=== PATIENT | male | born 1945 | race Caucasian/White ===

== ENCOUNTER → 2017-07-03 | Outpatient (CLI) | payer MEDICARE, OTHER ==
[~2017-07-03] MED LIST: AMLODIPINE5 MG PO; APRESOLINE50 MG PO; BYSTOLIC20 MG PO; CARDURA4 MG PO; CARVEDILOL25 MG PO; CATAPRES0.3 MG PO; CIPRO 500MG TA500 MG PO; CO Q-1010 M1 PO; CO Q-1050 MG PO; DIGITEK0.25 MG PO; DILTIAZEM240 M1 PO; FERROUS SU325 MG/TAB PO; FUROSEMIDE20 MG PO; GLUCOPHAGE1000 MG PO; GLUCOSAMINE CHO1 CAP PO; HYDROCHLOR50 MG PO; KLOR-CON 1010 MEQ PO; LANTUS100 U/ML; LASIX 40MG TABL40 MG PO; LISINOPRIL20 MG PO; M2 ZINC 5050 MG PO; MEN'S MULTIVITA1 TAB PO; MESTINON 6060 MG/TAB; METFORMIN1000 MG PO; NATURAL E400 IU PO; NOVOLOG 100U100 U/M1 SQ; OMEGA 31000 MG PO; POTASSIUM GLUCO80 MG PO; PRILOSEC 20MG20 MG PO; RITALIN 5MG5 MG/TAB; SIMVASTATIN20 MG PO; ST. JOSEPH81 M2 PO; TERAZOSIN5 MG PO; TIAZAC180 MG PO; VITAMIN C500 MG PO; VITAMIN D32000 IU PO; ZESTRIL 20MG TA20 MG PO
== END ==
LOC: COL.RAD 08:04
DX: R11.0 Nausea (principal)
CPT/HCPCS: A9541

== ENCOUNTER 2017-08-14 15:56 | Inpatient (IN) | payer MEDICARE, OTHER ==
[~2017-08-14] VITALS: Ht 180.3 cm; Wt 115.2 kg
[2017-08-17] VITALS (11 sets, daily range): BP systolic 99–121; BP diastolic 63–86; PULSE 91–107; TEMP 97.7–98.8
[2017-08-17] MEDS ORDERED: INSLANT SQ (11:27)
[2017-08-17] MEDS ORDERED: PRIL40 PO (11:29)
[2017-08-17] MEDS ORDERED: KEYTRUDA25 MG/ML IV (11:29)
[2017-08-17] MEDS ORDERED: REGLAN 10MG10 MG/TAB PO (11:30)
[2017-08-17] MEDS ORDERED: COLACE 100100 MG/CAP PO (11:31)
[2017-08-17] MEDS ORDERED: NOVOLIN R100 U/ML SQ (11:33)
[2017-08-17 11:40] LABS: ALBUMIN 3.5 gm/dL (3.5-5.0); CALCIUM 9.1 mg/dL (8.4-10.2); CREATININE, serum 0.81 mg/dL (0.66-1.25); POTASSIUM 4.3 mmol/L (3.4-5.0)
[2017-08-18 02:00] VITALS: BP 120/75; PULSE 110
[2017-08-18 05:49] VITALS: BP 135/76; PULSE 103; TEMP 98.9
[2017-08-18 07:29] LABS: BILIRUBIN,TOTAL 0.5 mg/dL (0.0-1.0); CALCIUM 8.1 mg/dL (8.4-10.2); CREATININE, serum 1.19 mg/dL (0.66-1.25); MAGNESIUM 1.7 mg/dL (1.6-2.3); PHOSPHOROUS 3.6 mg/dL (2.5-4.5); TOTAL PROTEIN 6.1 gm/dL (6.4-8.2)
[2017-08-18 09:23] VITALS: BP 131/75; PULSE 102; TEMP 97.5
[2017-08-18 09:54] LABS: HEMATOCRIT 38.2 % (42.0-52.0); HEMOGLOBIN 12.1 g/dl (13.5-18.0); MEAN CELL VOLUME 87 fl (80.0-100.0); MEAN CORPUSCULAR HEMOGLOBIN 28 pg (27.0-31.0); MEAN CORPUSCULAR HGB CONC 32 g/dl (33.0-37.0); MEAN PLATELET VOLUME 11.7 fl (7.4-10.4); PLATELET COUNT 235 K/mm3 (130-400); RED BLOOD COUNT 4.37 M/mm3 (4.20-5.60); REDCELL DISTRIBUTION WIDTH-CV 15.7 % (11.5-14.5)
[2017-08-18 10:12] LABS: BAND 13 % (0-10); LYMPHOCYTE 6 % (20.0-51.0); NEUTROPHILS 78 % (42.0-75.2); PLATELET ESTIMATE NORMAL (NORMAL)
[2017-08-18 14:04] VITALS: BP 131/76; PULSE 98; TEMP 98.2
[2017-08-18 16:24] VITALS: BP 143/84; PULSE 105; TEMP 98.4
[2017-08-18 23:02] VITALS: BP 127/70; PULSE 111; TEMP 98.4
[2017-08-19] VITALS (7 sets, daily range): BP systolic 129–143; BP diastolic 72–87; PULSE 72–105; TEMP 97.7–99.1
[2017-08-19 07:36] LABS: BASO # 0.1 (0.0-0.2); BASO % 0.4 % (0.0-2.0); EOS # 0.1 (0.0-0.7); EOS % 0.9 % (0-4.0); GRAN # 11.6 (1.4-6.5); GRAN % 80.5 % (42.2-75.2); LYMPH # 1.2 (1.2-3.4); LYMPH % 8.3 % (20.0-51.0); MEAN CELL VOLUME 84 fl (80.0-100.0); MEAN CORPUSCULAR HGB CONC 33 g/dl (33.0-37.0); MEAN PLATELET VOLUME 11.4 fl (7.4-10.4); MONO # 1.4 (0.1-0.6); MONO % 9.6 % (1.7-9.3); PLATELET COUNT 155 K/mm3 (130-400); RED BLOOD COUNT 3.94 M/mm3 (4.20-5.60); REDCELL DISTRIBUTION WIDTH-CV 15.8 % (11.5-14.5)
[2017-08-19 07:37] LABS: HEMATOCRIT 33.2 % (42.0-52.0); HEMOGLOBIN 10.9 g/dl (13.5-18.0); MEAN CORPUSCULAR HEMOGLOBIN 28 pg (27.0-31.0)
[2017-08-19 07:46] LABS: ALBUMIN 2.9 gm/dL (3.5-5.0); BILIRUBIN,TOTAL 0.4 mg/dL (0.0-1.0); CALCIUM 8.1 mg/dL (8.4-10.2); CREATININE, serum 0.95 mg/dL (0.66-1.25); POTASSIUM 4.6 mmol/L (3.4-5.0)
[2017-08-20] VITALS (7 sets, daily range): BP systolic 132–149; BP diastolic 58–91; PULSE 74–115; TEMP 97.5–99
[2017-08-20 06:57] LABS: ALBUMIN 2.7 gm/dL (3.5-5.0); BILIRUBIN,TOTAL 0.5 mg/dL (0.0-1.0); CALCIUM 7.9 mg/dL (8.4-10.2); CREATININE, serum 0.83 mg/dL (0.66-1.25); MAGNESIUM 1.9 mg/dL (1.6-2.3); PHOSPHOROUS 1.8 mg/dL (2.5-4.5); POTASSIUM 4.1 mmol/L (3.4-5.0); TOTAL PROTEIN 5.8 gm/dL (6.4-8.2)
[2017-08-20 07:01] LABS: BASO % 0.4 % (0.0-2.0); EOS # 0.3 (0.0-0.7); EOS % 3.1 % (0-4.0); GRAN # 7.8 (1.4-6.5); GRAN % 75.7 % (42.2-75.2); LYMPH % 9.8 % (20.0-51.0); MEAN CELL VOLUME 86 fl (80.0-100.0); MEAN CORPUSCULAR HGB CONC 32 g/dl (33.0-37.0); MEAN PLATELET VOLUME 11.2 fl (7.4-10.4); PLATELET COUNT 159 K/mm3 (130-400); RED BLOOD COUNT 3.82 M/mm3 (4.20-5.60); REDCELL DISTRIBUTION WIDTH-CV 15.7 % (11.5-14.5)
[2017-08-20 07:02] LABS: HEMATOCRIT 32.7 % (42.0-52.0); HEMOGLOBIN 10.5 g/dl (13.5-18.0); MEAN CORPUSCULAR HEMOGLOBIN 27 pg (27.0-31.0)
[2017-08-20 07:04] LABS: PRE ALBUMIN 8.7 mg/dL (17.6-36.0)
[2017-08-21 01:24] VITALS: BP 150/78; PULSE 88; TEMP 97.8
[2017-08-21 06:17] VITALS: BP 128/54; PULSE 91; TEMP 97.8
[2017-08-21 09:20] VITALS: BP 128/64; PULSE 87; TEMP 97.3
[2017-08-21 13:17] LABS: BASO # 0.1 (0.0-0.2); BASO % 0.7 % (0.0-2.0); EOS # 0.5 (0.0-0.7); EOS % 5.7 % (0-4.0); GRAN # 6.9 (1.4-6.5); GRAN % 76.3 % (42.2-75.2); LYMPH # 0.7 (1.2-3.4); LYMPH % 7.4 % (20.0-51.0); MEAN CELL VOLUME 88 fl (80.0-100.0); MEAN CORPUSCULAR HGB CONC 32 g/dl (33.0-37.0); MEAN PLATELET VOLUME 11.5 fl (7.4-10.4); MONO # 0.9 (0.1-0.6); MONO % 9.7 % (1.7-9.3); PLATELET COUNT 186 K/mm3 (130-400); RED BLOOD COUNT 3.91 M/mm3 (4.20-5.60)
[2017-08-21 13:19] LABS: HEMATOCRIT 34.2 % (42.0-52.0); MEAN CORPUSCULAR HEMOGLOBIN 28 pg (27.0-31.0)
[2017-08-21 13:31] VITALS: BP 132/61; PULSE 86; TEMP 98.2
[2017-08-21 13:47] LABS: ALBUMIN 2.6 gm/dL (3.5-5.0); CALCIUM 7.6 mg/dL (8.4-10.2); CREATININE, serum 0.84 mg/dL (0.66-1.25); PHOSPHOROUS 3.1 mg/dL (2.5-4.5)
[2017-08-21 17:13] VITALS: BP 129/62; PULSE 101; TEMP 98.9
[2017-08-21 21:56] VITALS: BP 139/67; PULSE 102; TEMP 98.4
[2017-08-22 01:17] VITALS: BP 146/85; PULSE 102; TEMP 98.1
[2017-08-22 04:41] VITALS: BP 159/89; PULSE 95; TEMP 97.3
[2017-08-22 09:48] VITALS: BP 133/57; PULSE 93; TEMP 98.3
[2017-08-22 12:08] LABS: BASO % 0.5 % (0.0-2.0); EOS # 0.4 (0.0-0.7); EOS % 4.9 % (0-4.0); GRAN # 6.5 (1.4-6.5); GRAN % 77.9 % (42.2-75.2); LYMPH # 0.6 (1.2-3.4); LYMPH % 7.1 % (20.0-51.0); MEAN CELL VOLUME 86 fl (80.0-100.0); MEAN CORPUSCULAR HGB CONC 32 g/dl (33.0-37.0); MEAN PLATELET VOLUME 10.8 fl (7.4-10.4); MONO # 0.8 (0.1-0.6); MONO % 9.2 % (1.7-9.3); PLATELET COUNT 196 K/mm3 (130-400); RED BLOOD COUNT 3.74 M/mm3 (4.20-5.60); REDCELL DISTRIBUTION WIDTH-CV 15.8 % (11.5-14.5)
[2017-08-22 12:09] LABS: HEMATOCRIT 32.1 % (42.0-52.0); HEMOGLOBIN 10.3 g/dl (13.5-18.0); MEAN CORPUSCULAR HEMOGLOBIN 28 pg (27.0-31.0)
[2017-08-22 12:15] LABS: ALBUMIN 2.5 gm/dL (3.5-5.0); CALCIUM 7.5 mg/dL (8.4-10.2); CREATININE, serum 0.81 mg/dL (0.66-1.25); PHOSPHOROUS 2.5 mg/dL (2.5-4.5); POTASSIUM 3.8 mmol/L (3.4-5.0)
[2017-08-22 13:45] VITALS: BP 126/71; PULSE 88; TEMP 97.5
[2017-08-22 17:43] VITALS: BP 132/64; PULSE 92; TEMP 98.6
[2017-08-22 21:37] VITALS: BP 159/78; PULSE 91; TEMP 98.9
[2017-08-23 01:26] VITALS: BP 151/82; PULSE 85; TEMP 98.5
[2017-08-23 05:23] VITALS: BP 148/89; PULSE 87; TEMP 98.1
[2017-08-23 09:51] VITALS: BP 144/70; PULSE 89; TEMP 97.8
[2017-08-23 13:52] VITALS: BP 124/65; PULSE 94; TEMP 97.4
[2017-08-23 21:38] VITALS: BP 144/80; PULSE 90; TEMP 98.1
[2017-08-24] VITALS (7 sets, daily range): BP systolic 125–147; BP diastolic 63–77; PULSE 84–101; TEMP 97.4–99.1
[2017-08-24] MEDS ORDERED: PERCOCET 325 MG1 TA2 PO (15:07)
[2017-08-24] MEDS ORDERED: CARAFATE S1 GM/10 ML PO (15:07)
[2017-08-25 02:24] VITALS: BP 136/75; PULSE 98; TEMP 98.6
[2017-08-25 06:02] VITALS: BP 128/76; PULSE 85; TEMP 98.6
[2017-08-25 07:04] LABS: BASO # 0.1 (0.0-0.2); BASO % 0.7 % (0.0-2.0); EOS # 0.5 (0.0-0.7); EOS % 5.9 % (0-4.0); GRAN # 6.6 (1.4-6.5); HEMATOCRIT 32.3 % (42.0-52.0); HEMOGLOBIN 10.3 g/dl (13.5-18.0); LYMPH # 0.9 (1.2-3.4); LYMPH % 9.8 % (20.0-51.0); MEAN CELL VOLUME 85 fl (80.0-100.0); MEAN CORPUSCULAR HEMOGLOBIN 27 pg (27.0-31.0); MEAN CORPUSCULAR HGB CONC 32 g/dl (33.0-37.0); MEAN PLATELET VOLUME 10.4 fl (7.4-10.4); MONO # 0.8 (0.1-0.6); MONO % 9.1 % (1.7-9.3); PLATELET COUNT 256 K/mm3 (130-400); RED BLOOD COUNT 3.78 M/mm3 (4.20-5.60); REDCELL DISTRIBUTION WIDTH-CV 15.9 % (11.5-14.5)
[2017-08-25 07:26] LABS: ALBUMIN 2.5 gm/dL (3.5-5.0); CALCIUM 7.9 mg/dL (8.4-10.2); CREATININE, serum 0.78 mg/dL (0.66-1.25); PHOSPHOROUS 2.9 mg/dL (2.5-4.5); POTASSIUM 4.8 mmol/L (3.4-5.0)
[2017-08-25 10:08] VITALS: BP 136/87; PULSE 83; TEMP 98.2
[2017-08-25 14:49] VITALS: BP 143/83; PULSE 93; TEMP 98.4
[2017-08-25 17:43] VITALS: BP 145/86; PULSE 102; TEMP 98
[2017-08-25 21:59] VITALS: BP 150/90; PULSE 109; TEMP 98.4
[2017-08-26 05:28] VITALS: BP 136/79; PULSE 93; TEMP 98.5
[2017-08-26 09:25] VITALS: BP 128/72; PULSE 82; TEMP 97.9
[2017-08-26 14:33] VITALS: BP 133/59; PULSE 87; TEMP 98.2
[2017-08-26 18:23] VITALS: BP 129/61; PULSE 88; TEMP 99.1
[2017-08-26 22:13] VITALS: BP 144/69; PULSE 103; TEMP 97.7
[2017-08-27 02:00] VITALS: BP 143/70; PULSE 104; TEMP 98.2
[2017-08-27 05:14] VITALS: BP 150/83; PULSE 94; TEMP 98
[2017-08-27 07:54] LABS: ALBUMIN 2.7 gm/dL (3.5-5.0); BILIRUBIN,TOTAL 0.2 mg/dL (0.0-1.0); CALCIUM 8.3 mg/dL (8.4-10.2); CREATININE, serum 0.77 mg/dL (0.66-1.25); MAGNESIUM 1.9 mg/dL (1.6-2.3); PHOSPHOROUS 3.6 mg/dL (2.5-4.5); POTASSIUM 4.9 mmol/L (3.4-5.0); TOTAL PROTEIN 5.9 gm/dL (6.4-8.2)
[2017-08-27 09:38] VITALS: BP 133/64; PULSE 90; TEMP 98.1
[2017-08-27 13:32] VITALS: BP 125/60; PULSE 88; TEMP 98.3
== END 2017-08-27 16:45 | disposition home health service (06) | DRG 629 ==
LOC: INPTSU 08-17 09:52 → SURG 08-17 12:30
PROVIDERS: Surgery
PROC: 0DN80ZZ Release Small Intestine, Open Approach (ICD-10-PCS; 2017-08-17)
PROC: 0DH60UZ Insertion of Feeding Device into Stomach, Open Approach (ICD-10-PCS; 2017-08-17)
PROC: 0DJD4ZZ Inspection of Lower Intestinal Tract, Percutaneous Endoscopic Approach (ICD-10-PCS; 2017-08-17)
PROC: 0DH60UZ Insertion of Feeding Device into Stomach, Open Approach (ICD-10-PCS; 2017-08-17)
PROC: 0DHA0UZ Insertion of Feeding Device into Jejunum, Open Approach (ICD-10-PCS; 2017-08-17)
PROC: 0DNE0ZZ Release Large Intestine, Open Approach (ICD-10-PCS; principal; 2017-08-17 12:30)
DX: E44.0 Moderate protein-calorie malnutrition (principal); C15.8 Malignant neoplasm of overlapping sites of esophagus; K66.0 Peritoneal adhesions (postprocedural) (postinfection); K29.50 Unspecified chronic gastritis without bleeding; Z85.46 Personal history of malignant neoplasm of prostate; I10 Essential (primary) hypertension; D64.9 Anemia, unspecified; I48.91 Unspecified atrial fibrillation; G47.33 Obstructive sleep apnea (adult) (pediatric); E86.0 Dehydration; K21.9 Gastro-esophageal reflux disease without esophagitis; K44.9 Diaphragmatic hernia without obstruction or gangrene; E11.9 Type 2 diabetes mellitus without complications; E83.39 Other disorders of phosphorus metabolism; Z79.4 Long term (current) use of insulin
CPT/HCPCS: A4315; A9284; C9113; J0694; J0744; J1100; J1650; J1815; J1885; J2270; J2405; J2704; J2765; J3010; J7030; J7120

== ENCOUNTER → 2017-12-03 | Outpatient (CLI) | payer MEDICARE, OTHER ==
[~2017-12-03] VITALS: Ht 180.3 cm; Wt 105.5 kg
[~2017-12-03] MED LIST changes: +CARAFATE 1GM1 G PO; +CARAFATE S1 GM/10 ML PO; +COLACE 100100 MG/CAP PO; +DAZIDOX10 MG PO; +INSLANT SQ; +KEYTRUDA25 MG/ML IV; +NOVOLIN N100 U/ML SQ; +NOVOLIN R100 U/ML SQ; +PERCOCET 325 MG1 TA2 PO; +PRIL40 PO; +REGLAN 10MG10 MG/TAB PO
== END ==
LOC: COL.RAD 09:36
DX: Z43.1 Encounter for attention to gastrostomy (principal); R10.9 Unspecified abdominal pain; C15.9 Malignant neoplasm of esophagus, unspecified
CPT/HCPCS: 5781